=== PATIENT | female | born 2000 | race Hispanic/Latino ===

== ENCOUNTER 2022-04-03 16:04 | Emergency (ER) | payer SELFPAY | END 2022-04-03 16:26 | disposition home or self-care (01) | LOC: BURERS 16:04 | DX: L03.211 Cellulitis of face (principal) | CPT/HCPCS: 99283 ==

== ENCOUNTER 2022-04-13 17:49 | Emergency (ER) | payer SELFPAY | END 2022-04-13 18:46 | disposition home or self-care (01) | LOC: BURERS 17:49 | DX: S00.551A Superficial foreign body of lip, initial encounter (principal); W49.04XA Ring or other jewelry causing external constriction, initial encounter | CPT/HCPCS: 99283 ==